=== PATIENT | female | born 1995 | race Caucasian/White ===

== ENCOUNTER 2017-03-24 05:59 | Emergency (ER) | payer BC ==
[~2017-03-24] VITALS: Ht 157.5 cm; Wt 69.3 kg
[2017-03-24] MEDS ORDERED: FAMOTIDINE 20 MG/2 ML IVP ONE (06:30)
[2017-03-24] MEDS ORDERED: ONDANSETRON 2MG/ML, 2ML IVPush ONE (06:30)
[2017-03-24] MEDS ORDERED: SODIUM CHLORIDE 0.9% 1,000ML IVBOLUS ONE (06:30)
[2017-03-24] MEDS ORDERED: SODIUM CHLORIDE FLUSH 10ML SYR IVF ONE (06:30)
[2017-03-24] MEDS ORDERED: MORPHINE SULFATE 4 MG/ML, 1ML IVPush PRN (06:30)
[2017-03-24 06:35] LABS: HEMATOCRIT 41.3 % (34.6-47.8); HEMOGLOBIN 13.9 g/dL (11.7-16.4); WHITE BLOOD COUNT 6.2 x10^3/uL (3.4-10)
[2017-03-24 06:47] LABS: BLOOD UREA NITROGEN 10 mg/dL (7-18)
[2017-03-24] MEDS ORDERED: FAMOTIDINE 20 MG/2 ML ONE (07:27)
[2017-03-24] MEDS ORDERED: ONDANSETRON 2MG/ML, 2ML ONE (07:27)
[2017-03-24] MEDS ORDERED: MORPHINE SULFATE 4 MG/ML, 1ML ONE (07:27)
[2017-03-24 09:26] VITALS: BP 104/68
[2017-03-25] MEDS ORDERED: MORPHINE SULFATE 4 MG/ML, 1ML IVPush PRN (06:30)
[2017-03-25] MEDS ORDERED: ONDANSETRON 2MG/ML, 2ML IVPush ONE (06:30)
[2017-03-25] MEDS ORDERED: SODIUM CHLORIDE FLUSH 10ML SYR IVF ONE (06:30)
[2017-03-25] MEDS ORDERED: SODIUM CHLORIDE 0.9% 1,000ML IVBOLUS ONE (06:30)
== END 2017-03-24 09:28 | disposition home or self-care (01) ==
LOC: ED 09:15
DX: K59.00 Constipation, unspecified (principal)
CPT/HCPCS: 36415; 74000; 76830; 80048; 81001; 82040; 84703; 85025; 87086; 96361; 96374; 96375; 99285; J2405; J7030; S0028

== ENCOUNTER 2017-03-25 05:24 | Emergency (ER) | payer BC ==
[~2017-03-25] VITALS: Ht 157.5 cm; Wt 69.9 kg
[2017-03-25] MEDS ORDERED: SODIUM CHLORIDE 0.9% 1,000ML IVBOLUS ONE (06:30)
[2017-03-25] MEDS ORDERED: OMNIPAQUE 350 MG/ML, 100ML BOTTLE ONE (06:54)
[2017-03-25 08:21] VITALS: BP 96/60
== END 2017-03-25 08:22 | disposition home or self-care (01) ==
LOC: ED 06:22
DX: R10.31 Right lower quadrant pain (principal); F12.10 Cannabis abuse, uncomplicated
CPT/HCPCS: 74177; 96360; 99284; J7030; Q9967

== ENCOUNTER 2017-09-20 08:10 | Emergency (ER) | payer BC ==
[~2017-09-20] VITALS: Ht 154.9 cm; Wt 72.9 kg
[2017-09-20] MEDS ORDERED: DEXAMETHASONE 4 MG TABLET ONE (08:53)
[2017-09-20] MEDS ORDERED: DEXAMETHASONE 4 MG TABLET PO ONE (09:00)
[2017-09-20 09:55] VITALS: BP 118/58
== END 2017-09-20 09:58 | disposition home or self-care (01) ==
LOC: ED 09:50
DX: R07.89 Other chest pain (principal); J18.8 Other pneumonia, unspecified organism; Z87.891 Personal history of nicotine dependence
CPT/HCPCS: 71046; 93005; 99284

== ENCOUNTER 2018-02-28 08:55 | Emergency (ER) | payer BC ==
[~2018-02-28] VITALS: Ht 154.9 cm; Wt 69.2 kg
[2018-02-28 08:58] VITALS: BP 110/80
[2018-02-28] MEDS ORDERED: DEXAMETHASONE 4 MG TABLET PO ONE (09:30)
[2018-02-28] MEDS ORDERED: DEXAMETHASONE 4 MG TABLET ONE (09:35)
== END 2018-02-28 10:24 | disposition home or self-care (01) ==
LOC: ED 10:20
DX: J02.8 Acute pharyngitis due to other specified organisms (principal); B97.89 Other viral agents as the cause of diseases classified elsewhere; K08.89 Other specified disorders of teeth and supporting structures
CPT/HCPCS: 71046; 87081; 87880; 99285

== ENCOUNTER 2018-06-06 04:26 | Emergency (ER) | payer BC ==
[~2018-06-06] VITALS: Ht 154.9 cm; Wt 71.3 kg
[2018-06-06] MEDS ORDERED: MORPHINE SULFATE 4 MG/ML, 1ML ONE ×2 (04:54→05:59)
[2018-06-06] MEDS ORDERED: ONDANSETRON 2MG/ML, 2ML ONE (04:54)
[2018-06-06] MEDS ORDERED: ONDANSETRON 2MG/ML, 2ML IVPush ONE (05:00)
[2018-06-06] MEDS ORDERED: SODIUM CHLORIDE FLUSH 10ML SYR IVF ONE (05:00)
[2018-06-06] MEDS ORDERED: SODIUM CHLORIDE 0.9% 1,000ML IVBOLUS ONE (05:00)
[2018-06-06 05:08] LABS: HCG UR SG 1.008 (1.003-1.030); MICROSCOPIC AUTO
[2018-06-06 05:09] LABS: CULTURE INDICATED? NO
[2018-06-06] MEDS: MORPHINE SULFATE 4 MG/ML, 1ML IVPush PRN ×2 (05:16→06:01)
[2018-06-06 05:29] LABS: BASOPHILS # (AUTO) 0.08 x10^3/uL (0-0.1); BASOPHILS % (AUTO) 1 % (0-1); EOSINOPHILS % (AUTO) 1 % (1-7); LYMPHOCYTES # (AUTO) 1.57 x10^3/uL (1-3.4); LYMPHOCYTES % (AUTO) 12 % (22-44); MD NO; MEAN CORPUSCULAR HEMOGLOBIN 30.7 pg (27.0-34.8); MEAN CORPUSCULAR VOLUME 90.1 fL (80-100); MEAN PLATELET VOLUME 7.6 fL (7.4-10.4); MONOCYTES # (AUTO) 0.78 x10^3/uL (0.2-0.8); MONOCYTES % (AUTO) 6 % (2-9); NEUTROPHILS # (AUTO) 10.82 x10^3/uL (1.8-6.8); NEUTROPHILS % (AUTO) 81 % (42-75); PLATELET COUNT 329 x10^3/uL (130-400); RED BLOOD COUNT 4.58 x10^6/uL (3.82-5.3); RED CELL DISTRIBUTION WIDTH 12.5 % (9.6-15.2)
[2018-06-06 05:38] LABS: ALANINE AMINOTRANSFERASE 24 U/L (12-78); ALBUMIN 3.9 g/dL (3.4-5.0); ANION GAP 7 mmol/L (5-15); CALCIUM 8.8 mg/dL (8.5-10.1); CHLORIDE 108 mmol/L (98-107); CREATININE 0.68 mg/dL (0.55-1.02)
[2018-06-06 05:43] LABS: ALKALINE PHOSPHATASE 73 U/L (45-117); BILIRUBIN,TOTAL 0.9 mg/dL (0.2-1.0); TOTAL PROTEIN 7.4 g/dL (6.4-8.2)
[2018-06-06] MEDS ORDERED: OMNIPAQUE 350 MG/ML, 100ML BOTTLE ONE (07:55)
[2018-06-06] MEDS ORDERED: DICYCLOMINE 10 MG/ML, 2ML ONE (08:13)
[2018-06-06] MEDS ORDERED: DICYCLOMINE 10 MG/ML, 2ML IM ONE (08:30)
[2018-06-06 08:57] VITALS: BP 99/56
== END 2018-06-06 09:13 | disposition home or self-care (01) ==
LOC: ED 05:20
DX: K57.32 Diverticulitis of large intestine without perforation or abscess without bleeding (principal)
CPT/HCPCS: 36415; 74177; 76830; 80053; 81001; 81025; 84703; 85025; 96361; 96372; 96374; 96375; 96376; 99284; J0500; J2405; J7030; Q9967

== ENCOUNTER 2018-06-07 01:06 | Inpatient (IN) | payer BC ==
[~2018-06-07] VITALS: Ht 154.9 cm; Wt 74.6 kg
[2018-06-07] MEDS ORDERED: CIPROFLOXACIN/PMX 400MG/200ML 200 ML IV ONE (01:30)
[2018-06-07] MEDS ORDERED: METOCLOPRAMIDE 5 MG/ML, 2ML IVPush ONE (01:30)
[2018-06-07] MEDS ORDERED: MORPHINE SULFATE 4 MG/ML, 1ML IVPush PRN ×2 (01:30→02:30)
[2018-06-07] MEDS ORDERED: METRONIDAZOLE PMX 500MG/100ML 100 ML IV ONE (01:30)
[2018-06-07] MEDS ORDERED: SODIUM CHLORIDE FLUSH 10ML SYR IVF ONE (01:30)
[2018-06-07] MEDS ORDERED: METOCLOPRAMIDE 5 MG/ML, 2ML ONE (01:31)
[2018-06-07] MEDS ORDERED: MORPHINE SULFATE 4 MG/ML, 1ML ONE (01:31)
[2018-06-07] MEDS ORDERED: METRONIDAZOLE PMX 500MG/100ML 100 ML ONE (01:44)
[2018-06-07] MEDS ORDERED: CIPROFLOXACIN/PMX 400MG/200ML 200 ML ONE (01:44)
[2018-06-07 01:48] LABS: BASOPHILS # (AUTO) 0.05 x10^3/uL (0-0.1); BASOPHILS % (AUTO) 0 % (0-1); EOSINOPHILS # (AUTO) 0.04 x10^3/uL (0-0.4); EOSINOPHILS % (AUTO) 0 % (1-7); LYMPHOCYTES # (AUTO) 1.56 x10^3/uL (1-3.4); LYMPHOCYTES % (AUTO) 9 % (22-44); MD NO; MEAN CORPUSCULAR HEMOGLOBIN 30.7 pg (27.0-34.8); MEAN CORPUSCULAR VOLUME 90.2 fL (80-100); MEAN PLATELET VOLUME 7.6 fL (7.4-10.4); MONOCYTES # (AUTO) 1.02 x10^3/uL (0.2-0.8); MONOCYTES % (AUTO) 6 % (2-9); NEUTROPHILS % (AUTO) 85 % (42-75); PLATELET COUNT 395 x10^3/uL (130-400); RED CELL DISTRIBUTION WIDTH 12.2 % (9.6-15.2)
[2018-06-07 01:57] LABS: ALANINE AMINOTRANSFERASE 25 U/L (12-78); ANION GAP 13 mmol/L (5-15); CALCIUM 9.3 mg/dL (8.5-10.1); CHLORIDE 100 mmol/L (98-107); CREATININE 0.91 mg/dL (0.55-1.02)
[2018-06-07 02:02] LABS: ALKALINE PHOSPHATASE 78 U/L (45-117); BILIRUBIN,TOTAL 1.4 mg/dL (0.2-1.0); TOTAL PROTEIN 8.4 g/dL (6.4-8.2)
[2018-06-07] MEDS ORDERED: SODIUM CHLORIDE 0.9% 1,000 ML IV ONE (02:17)
[2018-06-07] MEDS ORDERED: ONDANSETRON 2MG/ML, 2ML IVPush PRN ×2 (02:30→03:30)
[2018-06-07 03:02] VITALS: BP 103/65
[2018-06-07] MEDS ORDERED: ONDANSETRON 2MG/ML, 2ML ONE (03:12)
[2018-06-07] MEDS: SODIUM CHLORIDE 0.9% 1,000 ML IV SCH ×3 (03:17→22:00)
[2018-06-07] MEDS ORDERED: ONDANSETRON ODT 4 MG PO PRN (03:30)
[2018-06-07] MEDS ORDERED: ACETAMINOPHEN 650 MG SUPP PR PRN (03:30)
[2018-06-07] MEDS: CEFTRIAXONE PMX 1GM/50ML 50 ML IV SCH (03:30)
[2018-06-07] MEDS ORDERED: PROMETHAZINE 25 MG/ML, 1ML IM PRN (03:30)
[2018-06-07] MEDS ORDERED: ACETAMINOPHEN 500 MG TABLET PO PRN (03:30)
[2018-06-07] MEDS: HYDROmorphone 2 MG/ML, 1ML IVPush PRN ×2 (03:39→12:13)
[2018-06-07] MEDS: ENOXAPARIN 40 MG/0.4 ML SQ SCH (03:46)
[2018-06-07 04:00] VITALS: BP 103/65
[2018-06-07 06:59] VITALS: BP 87/47
[2018-06-07 07:57] VITALS: BP 93/57
[2018-06-07] MEDS: METRONIDAZOLE PMX 500MG/100ML 100 ML IV SCH ×2 (10:06→17:56)
[2018-06-07] MEDS ORDERED: POTASSIUM CHLORIDE 20 MEQ TAB.ER.PRT PO ONE (12:30)
[2018-06-07 13:34] VITALS: BP 99/65
[2018-06-07 19:54] VITALS: BP 108/71
[2018-06-08] MEDS: METRONIDAZOLE PMX 500MG/100ML 100 ML IV SCH ×2 (01:56→10:00)
[2018-06-08 02:09] VITALS: BP 103/52
[2018-06-08] MEDS: CEFTRIAXONE PMX 1GM/50ML 50 ML IV SCH (03:36)
[2018-06-08] MEDS: ENOXAPARIN 40 MG/0.4 ML SQ SCH (03:36)
[2018-06-08 05:35] LABS: BASOPHILS # (AUTO) 0.02 x10^3/uL (0-0.1); BASOPHILS % (AUTO) 0 % (0-1); EOSINOPHILS # (AUTO) 0.07 x10^3/uL (0-0.4); EOSINOPHILS % (AUTO) 1 % (1-7); LYMPHOCYTES # (AUTO) 0.87 x10^3/uL (1-3.4); LYMPHOCYTES % (AUTO) 12 % (22-44); MD NO; MEAN CORPUSCULAR HEMOGLOBIN 30.8 pg (27.0-34.8); MEAN CORPUSCULAR HGB CONC 33.7 g/dL (32.4-35.8); MEAN CORPUSCULAR VOLUME 91.2 fL (80-100); MEAN PLATELET VOLUME 7.9 fL (7.4-10.4); MONOCYTES # (AUTO) 0.87 x10^3/uL (0.2-0.8); MONOCYTES % (AUTO) 12 % (2-9); NEUTROPHILS # (AUTO) 5.19 x10^3/uL (1.8-6.8); NEUTROPHILS % (AUTO) 74 % (42-75); PLATELET COUNT 301 x10^3/uL (130-400); RED BLOOD COUNT 3.99 x10^6/uL (3.82-5.3); RED CELL DISTRIBUTION WIDTH 12.2 % (9.6-15.2)
[2018-06-08 05:42] LABS: CALCIUM 8.3 mg/dL (8.5-10.1); CHLORIDE 105 mmol/L (98-107)
[2018-06-08 05:45] LABS: ANION GAP 8 mmol/L (5-15); CREATININE 0.65 mg/dL (0.55-1.02)
[2018-06-08 07:37] VITALS: BP 111/72
[2018-06-08] MEDS: SODIUM CHLORIDE 0.9% 1,000 ML IV SCH ×2 (08:55→14:40)
[2018-06-08] MEDS ORDERED: metroNIDAZOLE 500 MG TABLET PO SCH (10:30)
[2018-06-08 11:30] VITALS: BP 116/73
[2018-06-08] MEDS ORDERED: METR500T PO (15:33)
[2018-06-08] MEDS ORDERED: CIPR250T27 PO (15:33)
== END 2018-06-08 16:20 | disposition home or self-care (01) | DRG 392 ==
LOC: ED 01:35 → EDIP 02:17 → 4NOR 03:00 → 3WST 06-08 11:31 → DCLOUNGE 06-08 16:10
PROVIDERS: ADMIT Hospitalist; ATTEND Hospitalist
DX: K57.32 Diverticulitis of large intestine without perforation or abscess without bleeding (principal); E87.1 Hypo-osmolality and hyponatremia; E87.6 Hypokalemia; N83.202 Unspecified ovarian cyst, left side; F12.90 Cannabis use, unspecified, uncomplicated
CPT/HCPCS: 36415; 80048; 80053; 83690; 83735; 84100; 84703; 85025; 96365; 96375; G0378; J0696; J0744; J1170; J1650; J2405; J2765; J7030

== ENCOUNTER 2018-06-10 18:45 | Emergency (ER) | payer BC ==
[~2018-06-10] VITALS: Ht 154.9 cm; Wt 69.2 kg
[~2018-06-10 18:45] MED LIST: CIPR250T27 PO; METR500T PO
[2018-06-10 19:46] LABS: BASOPHILS % (AUTO) 1 % (0-1); EOSINOPHILS # (AUTO) 0.09 x10^3/uL (0-0.4); EOSINOPHILS % (AUTO) 1 % (1-7); LYMPHOCYTES % (AUTO) 25 % (22-44); MD NO; MEAN CORPUSCULAR HEMOGLOBIN 30.6 pg (27.0-34.8); MEAN CORPUSCULAR HGB CONC 33.9 g/dL (32.4-35.8); MEAN CORPUSCULAR VOLUME 90.2 fL (80-100); MEAN PLATELET VOLUME 7.4 fL (7.4-10.4); MONOCYTES # (AUTO) 0.53 x10^3/uL (0.2-0.8); MONOCYTES % (AUTO) 7 % (2-9); NEUTROPHILS # (AUTO) 5.09 x10^3/uL (1.8-6.8); NEUTROPHILS % (AUTO) 66 % (42-75); PLATELET COUNT 411 x10^3/uL (130-400); RED BLOOD COUNT 4.83 x10^6/uL (3.82-5.3); RED CELL DISTRIBUTION WIDTH 12.4 % (9.6-15.2)
[2018-06-10 19:47] LABS: ALANINE AMINOTRANSFERASE 39 U/L (12-78); ALBUMIN 3.9 g/dL (3.4-5.0); ANION GAP 9 mmol/L (5-15); CALCIUM 8.9 mg/dL (8.5-10.1); CHLORIDE 105 mmol/L (98-107)
[2018-06-10 19:49] LABS: ALKALINE PHOSPHATASE 62 U/L (45-117); BILIRUBIN,TOTAL 0.4 mg/dL (0.2-1.0); TOTAL PROTEIN 8.1 g/dL (6.4-8.2)
[2018-06-10] MEDS ORDERED: KETOROLAC 30 MG/1 ML ONE (19:58)
[2018-06-10] MEDS ORDERED: ONDANSETRON 2MG/ML, 2ML ONE (19:58)
[2018-06-10] MEDS ORDERED: SODIUM CHLORIDE FLUSH 10ML SYR IVF ONE (20:00)
[2018-06-10] MEDS ORDERED: KETOROLAC 30 MG/1 ML IVPush ONE (20:00)
[2018-06-10] MEDS ORDERED: ONDANSETRON 2MG/ML, 2ML IVPush ONE (20:00)
[2018-06-10] MEDS ORDERED: SODIUM CHLORIDE 0.9% 1,000ML IVBOLUS ONE (20:00)
[2018-06-10 20:15] LABS: CULTURE INDICATED? YES; MICROSCOPIC INDICATED
[2018-06-10 20:56] VITALS: BP 107/57
== END 2018-06-10 21:36 | disposition home or self-care (01) ==
LOC: ED 20:15
DX: E86.0 Dehydration (principal); R11.2 Nausea with vomiting, unspecified; R07.9 Chest pain, unspecified; R51 Headache; F12.10 Cannabis abuse, uncomplicated; Z87.19 Personal history of other diseases of the digestive system; Z87.440 Personal history of urinary (tract) infections
CPT/HCPCS: 36415; 71046; 80053; 81001; 83690; 85025; 87086; 93005; 96361; 96374; 96375; 99284; J1885; J2405; J7030

== ENCOUNTER 2019-11-10 17:15 | Inpatient (IN) | payer BC ==
[~2019-11-10] VITALS: Ht 157.5 cm; Wt 73.8 kg
[2019-11-10] MEDS ORDERED: HYDROmorphone 1 MG/ML, 1ML INJ ONE (17:49)
[2019-11-10] MEDS ORDERED: ONDANSETRON 2MG/ML, 2ML ONE ×2 (17:50→20:47)
[2019-11-10 17:52] LABS: BASOPHILS # (AUTO) 0.05 x10^3/uL (0-0.1); BASOPHILS % (AUTO) 0 % (0-1); EOSINOPHILS # (AUTO) 0.07 x10^3/uL (0-0.4); EOSINOPHILS % (AUTO) 0 % (1-7); LYMPHOCYTES # (AUTO) 2.08 x10^3/uL (1-3.4); LYMPHOCYTES % (AUTO) 12 % (22-44); MD NO; MEAN CORPUSCULAR HEMOGLOBIN 29.8 pg (27.0-34.8); MEAN CORPUSCULAR HGB CONC 33.4 g/dL (32.4-35.8); MEAN CORPUSCULAR VOLUME 89.1 fL (80-100); MEAN PLATELET VOLUME 7.3 fL (7.4-10.4); MONOCYTES # (AUTO) 0.68 x10^3/uL (0.2-0.8); MONOCYTES % (AUTO) 4 % (2-9); NEUTROPHILS % (AUTO) 83 % (42-75); PLATELET COUNT 398 x10^3/uL (130-400); RED BLOOD COUNT 5.14 x10^6/uL (3.82-5.3); RED CELL DISTRIBUTION WIDTH 12.4 % (9.6-15.2)
[2019-11-10] MEDS ORDERED: SODIUM CHLORIDE FLUSH 10ML SYR IVF ONE (18:00)
[2019-11-10] MEDS ORDERED: SODIUM CHLORIDE 0.9% 1,000ML IVBOLUS ONE (18:00)
[2019-11-10] MEDS ORDERED: ONDANSETRON 2MG/ML, 2ML IVPush ONE ×2 (18:00→21:30)
[2019-11-10] MEDS ORDERED: HYDROmorphone 2 MG/ML, 1ML IVPush PRN (18:00)
[2019-11-10 18:01] LABS: ALANINE AMINOTRANSFERASE 25 U/L (12-78); ANION GAP 8 mmol/L (5-15); CALCIUM 9.2 mg/dL (8.5-10.1); CHLORIDE 103 mmol/L (98-107); CREATININE 0.81 mg/dL (0.55-1.02)
[2019-11-10 18:06] LABS: ALKALINE PHOSPHATASE 84 U/L (45-117); BILIRUBIN,TOTAL 1.3 mg/dL (0.2-1.0); TOTAL PROTEIN 8.4 g/dL (6.4-8.2)
--- NOTE | 2019-11-10 18:45 | NUR ---
PT HAS CO ABDOMINAL PAIN W N/V FOR 4 DAYS. PT DENIES TRAUMA OR DRUGS.
--- NOTE | 2019-11-10 18:50 | NUR ---
REPORT TO DOROTHY
--- NOTE | 2019-11-10 19:06 | NUR ---
REPORT RECEIVED FROM ROBIN ZENDEJAS. PT IN IMAGING AT TIME OF SHIFT CHANGE.
--- NOTE | 2019-11-10 19:35 | NUR ---
PT PROIVIDED UA CUP AT THIS TIME.
[2019-11-10] MEDS ORDERED: OMNIPAQUE 350 MG/ML, 100ML BOTTLE ONE (20:37)
[2019-11-10] MEDS ORDERED: METRONIDAZOLE PMX 500MG/100ML 100 ML IV ONE (21:00)
[2019-11-10] MEDS ORDERED: CEFTRIAXONE PMX 1GM/50ML 50 ML IVPB ONE (21:00)
[2019-11-10] MEDS ORDERED: METRONIDAZOLE PMX 500MG/100ML 0 ML ONE (21:18)
[2019-11-10] MEDS ORDERED: CEFTRIAXONE PMX 1GM/50ML 50 ML ONE (21:19)
[2019-11-10 21:20] LABS: MICROSCOPIC NOT IND
--- NOTE | 2019-11-10 21:25 | NUR ---
PT RESTING ON [email or web address] AT THIS TIME. MEDICATED PER SEP. MONITORING IN PLACE. CALL LIGHT WITHIN REACH. H AT AT THIS TIME.
[2019-11-10 21:40] LABS: CULTURE INDICATED? NO
[2019-11-10] MEDS ORDERED: METOCLOPRAMIDE 5 MG/ML, 2ML IVPush PRN (22:00)
[2019-11-10] MEDS ORDERED: CEFTRIAXONE PMX 1GM/50ML 50 ML IV SCH (22:00)
[2019-11-10] MEDS ORDERED: PROMETHAZINE 25 MG/ML, 1ML IM PRN (22:00)
[2019-11-10] MEDS ORDERED: ACETAMINOPHEN 325 MG TABLET PO PRN (22:00)
[2019-11-10 22:29] VITALS: BP 94/56
[2019-11-10] MEDS: METRONIDAZOLE PMX 500MG/100ML 100 ML IV SCH (23:26)
[2019-11-11 00:41] VITALS: BP 92/61
[2019-11-11 04:09] VITALS: BP 88/53
[2019-11-11] MEDS ORDERED: SODIUM CHLORIDE 0.9%, 500ML IVBOLUS ONE (04:30)
[2019-11-11 05:08] LABS: BASOPHILS # (AUTO) 0.04 x10^3/uL (0-0.1); BASOPHILS % (AUTO) 0 % (0-1); EOSINOPHILS # (AUTO) 0.12 x10^3/uL (0-0.4); EOSINOPHILS % (AUTO) 1 % (1-7); LYMPHOCYTES # (AUTO) 1.87 x10^3/uL (1-3.4); LYMPHOCYTES % (AUTO) 14 % (22-44); MD NO; MEAN CORPUSCULAR HEMOGLOBIN 29.9 pg (27.0-34.8); MEAN CORPUSCULAR HGB CONC 33.2 g/dL (32.4-35.8); MEAN PLATELET VOLUME 7.6 fL (7.4-10.4); MONOCYTES # (AUTO) 0.85 x10^3/uL (0.2-0.8); MONOCYTES % (AUTO) 6 % (2-9); NEUTROPHILS # (AUTO) 10.47 x10^3/uL (1.8-6.8); NEUTROPHILS % (AUTO) 78 % (42-75); PLATELET COUNT 333 x10^3/uL (130-400); RED BLOOD COUNT 4.55 x10^6/uL (3.82-5.3); RED CELL DISTRIBUTION WIDTH 12.6 % (9.6-15.2)
[2019-11-11 05:13] LABS: ANION GAP 9 mmol/L (5-15); CALCIUM 8.5 mg/dL (8.5-10.1); CHLORIDE 106 mmol/L (98-107)
[2019-11-11 05:14] LABS: CREATININE 0.72 mg/dL (0.55-1.02)
[2019-11-11 05:28] VITALS: BP 95/59
[2019-11-11 07:13] VITALS: BP 91/55
[2019-11-11] MEDS: FAMOTIDINE 20 MG TABLET PO SCH ×2 (08:37→21:25)
[2019-11-11] MEDS: METRONIDAZOLE PMX 500MG/100ML 100 ML IV SCH ×2 (08:37→16:52)
[2019-11-11] MEDS: morphine SULFATE 10 MG/ML, 1ML IVPush PRN ×2 (08:50→15:19)
[2019-11-11] MEDS: ONDANSETRON 2MG/ML, 2ML IVPush PRN (10:26)
[2019-11-11 13:22] VITALS: BP 106/65
[2019-11-11 19:05] VITALS: BP 112/68
[2019-11-12] MEDS: METRONIDAZOLE PMX 500MG/100ML 100 ML IV SCH ×2 (00:19→07:30)
[2019-11-12 00:41] VITALS: BP 94/60
[2019-11-12] MEDS: ONDANSETRON 2MG/ML, 2ML IVPush PRN (04:54)
[2019-11-12 06:01] LABS: BASOPHILS # (AUTO) 0.05 x10^3/uL (0-0.1); BASOPHILS % (AUTO) 0 % (0-1); EOSINOPHILS # (AUTO) 0.06 x10^3/uL (0-0.4); EOSINOPHILS % (AUTO) 1 % (1-7); LYMPHOCYTES # (AUTO) 1.44 x10^3/uL (1-3.4); LYMPHOCYTES % (AUTO) 13 % (22-44); MD NO; MEAN CORPUSCULAR HEMOGLOBIN 29.8 pg (27.0-34.8); MEAN CORPUSCULAR VOLUME 90.1 fL (80-100); MEAN PLATELET VOLUME 7.6 fL (7.4-10.4); MONOCYTES # (AUTO) 0.58 x10^3/uL (0.2-0.8); MONOCYTES % (AUTO) 5 % (2-9); NEUTROPHILS # (AUTO) 8.92 x10^3/uL (1.8-6.8); NEUTROPHILS % (AUTO) 81 % (42-75); PLATELET COUNT 318 x10^3/uL (130-400); RED BLOOD COUNT 4.32 x10^6/uL (3.82-5.3); RED CELL DISTRIBUTION WIDTH 12.6 % (9.6-15.2)
[2019-11-12 06:11] LABS: CHLORIDE 105 mmol/L (98-107)
[2019-11-12 06:16] LABS: ALANINE AMINOTRANSFERASE 21 U/L (12-78); ALBUMIN 3.2 g/dL (3.4-5.0); ALKALINE PHOSPHATASE 66 U/L (45-117); ANION GAP 9 mmol/L (5-15); BILIRUBIN,TOTAL 0.9 mg/dL (0.2-1.0); CALCIUM 8.5 mg/dL (8.5-10.1); CREATININE 0.68 mg/dL (0.55-1.02)
[2019-11-12] MEDS: FAMOTIDINE 20 MG TABLET PO SCH (07:30)
[2019-11-12 08:07] VITALS: BP 98/63
[2019-11-12] MEDS ORDERED: CIPR250T27 PO (09:47)
[2019-11-12] MEDS ORDERED: METR500T PO (09:47)
[2019-11-12] MEDS ORDERED: ONDA4TAB7 PO (09:47)
== END 2019-11-12 10:30 | disposition home or self-care (01) | DRG 872 ==
LOC: ED 17:53 → EDIP 21:15 → 3N 22:15
PROVIDERS: ATTEND Family Medicine
DX: A41.9 Sepsis, unspecified organism (principal); K57.32 Diverticulitis of large intestine without perforation or abscess without bleeding; R17 Unspecified jaundice; E87.6 Hypokalemia
CPT/HCPCS: 36415; 74177; 76830; 76857; 80048; 80053; 81003; 83605; 83690; 83735; 84145; 84703; 85025; 87040; 93005; 96361; 96374; 96375; G0378; J0696; J1170; J2405; Q9967; J2270; J2765; J7030; J7040

== ENCOUNTER 2019-11-15 14:16 | Emergency (ER) | payer BC ==
[~2019-11-15] VITALS: Ht 154.9 cm; Wt 71.4 kg
[~2019-11-15 14:16] MED LIST changes: +ONDA4TAB7 PO
[2019-11-15 14:20] VITALS: BP 110/66
[2019-11-15] MEDS ORDERED: ONDANSETRON 2MG/ML, 2ML ONE (14:43)
[2019-11-15] MEDS ORDERED: ONDANSETRON 2MG/ML, 2ML IVPush ONE (15:00)
[2019-11-15] MEDS ORDERED: SODIUM CHLORIDE 0.9% 1,000ML IVBOLUS ONE (15:00)
[2019-11-15] MEDS ORDERED: SODIUM CHLORIDE FLUSH 10ML SYR IVF ONE (15:00)
[2019-11-15 15:32] LABS: ALBUMIN 3.7 g/dL (3.4-5.0); ANION GAP 7 mmol/L (5-15); CHLORIDE 104 mmol/L (98-107)
[2019-11-15 15:36] LABS: ALANINE AMINOTRANSFERASE 21 U/L (12-78); ALKALINE PHOSPHATASE 66 U/L (45-117); BILIRUBIN,TOTAL 0.3 mg/dL (0.2-1.0); CREATININE 0.82 mg/dL (0.55-1.02); TOTAL PROTEIN 7.8 g/dL (6.4-8.2)
[2019-11-15 15:40] LABS: CULTURE INDICATED? YES; MICROSCOPIC INDICATED
[2019-11-15 15:56] LABS: BASOPHILS # (AUTO) 0.04 x10^3/uL (0-0.1); BASOPHILS % (AUTO) 0 % (0-1); EOSINOPHILS # (AUTO) 0.05 x10^3/uL (0-0.4); EOSINOPHILS % (AUTO) 1 % (1-7); LYMPHOCYTES # (AUTO) 1.73 x10^3/uL (1-3.4); LYMPHOCYTES % (AUTO) 16 % (22-44); MD NO; MEAN CORPUSCULAR HEMOGLOBIN 30.1 pg (27.0-34.8); MEAN CORPUSCULAR HGB CONC 33.5 g/dL (32.4-35.8); MEAN CORPUSCULAR VOLUME 89.7 fL (80-100); MEAN PLATELET VOLUME 7.9 fL (7.4-10.4); MONOCYTES # (AUTO) 0.59 x10^3/uL (0.2-0.8); MONOCYTES % (AUTO) 6 % (2-9); NEUTROPHILS # (AUTO) 8.14 x10^3/uL (1.8-6.8); NEUTROPHILS % (AUTO) 77 % (42-75); PLATELET COUNT 405 x10^3/uL (130-400); RED BLOOD COUNT 4.77 x10^6/uL (3.82-5.3); RED CELL DISTRIBUTION WIDTH 12.4 % (9.6-15.2)
--- NOTE | 2019-11-15 17:15 | NUR ---
Patient given discharge instructions and they have confirmed that they understand the instructions. Patient ambulatory with steady gait.
== END 2019-11-15 17:16 | disposition home or self-care (01) ==
LOC: ED 15:11
DX: R11.2 Nausea with vomiting, unspecified (principal)
CPT/HCPCS: 36415; 80053; 81001; 83605; 85025; 87086; 96361; 96374; 99283; J2405; J7030; 87077